=== PATIENT | female | born 1975 | race Caucasian/White ===

== ENCOUNTER 2017-10-17 18:28 | Emergency (ER) | payer BC ==
[~2017-10-17] VITALS: Ht 160 cm; Wt 61.7 kg
[2017-10-17 18:30] VITALS: BP 151/75; PULSE 96; TEMP 37; O2SAT 97; Ht 160 cm; Wt 61.7 kg
[2017-10-17] MEDS ORDERED: CEPHALEXIN MONOHYDRATE 250 MG CAP PO STA (18:42)
[2017-10-17] MEDS ORDERED: LIDOCAINE/EPINEPHRINE 1% 20 ML VIAL INFIL ONE (18:45)
[2017-10-17] MEDS ORDERED: DIPHTHERIA/TETANUS/PERTUSSIS 0.5 ML SYR/VIAL IM. ONE (18:45)
[2017-10-17] MEDS ORDERED: MULT-240 PO (19:00)
--- NOTE | 2017-10-17 19:01 | EMERGENCY ROOM VISIT NOTE ---
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 She has overall unfamiliar with the dog, however states vaccinations are up-to-date. The bleeding has stopped. Denies weakness or numbness of the hand or fingers. The patient rates the pain as throbbing and 5/10. The patient denies any other injuries. The patient's Tetanus shot is not up to date. The patient was seen by urgent care, and sent to the emergency department for evaluation, as the ulceration appears very deep. Urgent care was concerned for possible tendon injury. REVIEW OF SYSTEMS: A 6 system review of systems was completed with positives and pertinent negatives listed in the HPI. ALLERGIES: None MEDICATIONS: Excedrin, multivitamin PMH: None SOCIAL HISTORY: The patient lives locally with family. She denies drug, alcohol , tobacco use. PHYSICAL EXAM: Vital Signs: Reviewed Nurse's notes, vital signs stable. GENERAL : This is a 42-year-old white female, in no acute distress, well-developed, well -nourished. SKIN: There is a 2 inch long laceration on the anterior aspect of the right hand. The edges gape apart with traction. There is no foreign material in the wound and it looks clean. There is minimal bleeding. No obvious deep structures such as tendons, bones, or significant blood vessels are seen in the base of the wound, however possible tendon noted with deep examination after anesthesia. This does appear to be intact. Normal strength and movement of the fingers and wrist. Capillary refill less than 2 seconds. Normal sensation to light and sharp touch. EMERGENCY DEPARTMENT COURSE: I examined the patient. Verbal consent was obtained to perform the procedure. Using sterile technique the wound was cleansed with Betadine. The area was sterilely draped. 6 ml of 1% lidocaine with epinephrine was used to anesthetize the laceration on the hand. Once the patient was anesthetized, the wound was copiously irrigated under pressure with sterile saline. The wound was explored and was as described above. The laceration was repaired using 5 loose, simple interrupted 5-0 nylon sutures with the wound edges being well approximated. The patient tolerated the procedure well. Hemostasis was achieved. The area was cleaned with sterile saline and dressed with bacitracin ointment and bandage. The patient was given Tdap immunization. The patient was discharged home in good condition. I attest that I have personally reviewed the patient's current medication list. Patient was found to have normal blood pressure on screening and does not require follow-up. DIFFERENTIAL DIAGNOSIS: Laceration, tendon injury, infection, bite, rabies, and others DIAGNOSIS: Dog bite to right hand Current/Historical Medications Scheduled Amoxicillin & Pot Clavulanate (Augmentin 875-125 mg), 1 TAB PO BID Multiple Vitamins W/ Minerals (Womens One Daily), 1 TAB PO DAILY Allergies Coded Allergies: No Known Allergies (Unverified , 10/17/17) Vital Signs Date Time Temp Pulse Resp B/P (MAP) Pulse Ox O2 Delivery O2 Flow Rate FiO2 10/17/17 18:30 37.0 96 18 151/75 97 Room Air Medications Administered Medications (Trade) Dose Ordered Sig/E[place]rett Route Start Time Stop Time Status Last Admin Dose Admin Diphtheria/ Pertussis/Tetanus Vacc (Adacel Inj) 0.5 ml ONCE ONCE IM. 10/17/17 18:45 10/17/17 18:46 DC 10/17/17 18:49 0.5 ML Cephalexin Monohydrate (Keflex Cap) 500 mg NOW STAT PO 10/17/17 18:42 10/17/17 18:45 DC 10/17/17 18:48 500 MG Amoxicillin/ Clavulanate Potassium (Augmentin 875MG Home Pack) 1 homepack UD STAT PO 10/17/17 19:36 10/17/17 19:37 DC 10/17/17 19:36 1 HOMEPACK Departure Information Impression Primary Impression: Dog bite Additional Impression: Laceration of right hand Dispostion Home / Self-Care Condition GOOD Prescriptions Amoxicillin & Pot Clavulanate (Augmentin 875-125 mg) 1 Tab Tab 1 TAB PO BID for 7 Days, #14 TAB Prov: Jelena Browning, HENRY 10/17/17 Referrals No Doctor, Assigned (PCP) James Miramontes MD Patient Instructions ED Bite Dog, ED Laceration Hand, My [facility] Additional Instructions You have received 5 sutures on your right hand. These sutures are NOT dissolvable and WILL need to be removed by a health care provider in 10-14 days. You can return to the Emergency Department or contact your Primary Care Provider to have the sutures removed. Proper wound care is essential for adequate wound healing and infection prevention. You can shower and clean the wound with soap and water. Do not scour over the wound, pat dry with a towel. Do not submerse the wound (i.e. bathe or dish wash) until the sutures have been removed. You can use an antibiotic ointment with a dressing over the wound for the next 3-4 days. After this time you may leave the wound dry and open to the air. If crust develops over the wound you can use a Q-tip to apply a 1:1 peroxide:water solution to clean the wound. You were prescribed Augmentin to be taken twice daily for 7 days. This is an antibiotic to help prevent infection. All antibiotics have the potential to cause diarrhea. Stop this medication and contact a medical provider if you were to develop any significant adverse side effects including: wheezing, shortness of breath, passing out, vomiting, or a diffuse rash. Always take antibiotics as directed and COMPLETE the ENTIRE course regardless of the improvement of your symptoms. Please take your first dose of Augmentin tonight before bed. Look for signs of infection of the wound including: increased pain, swelling, foul discharge, streaking, or increased temperature. If any of these are noticed you should return to the Emergency Department for further assessment and treatment. As with any laceration you may have received nerve damage to the surrounding tissues. This damage may or may not be permanent. You should keep the area covered with sunscreen for the first 6 months to 1 year when at risk for exposure to help minimize scarring. You can also use scar reducing creams or Vitamin E oil to help minimize scarring. For pain control, you can use the following [id number] medicines (if >12 yo): Ibuprofen(Motrin, Advil) may be used for fever or pain. Use 600mg every six hours as needed. Take with food. Avoid using more than 2400mg in a 24 hour period. Do not use 2400mg per day for more than three consecutive days without physician direction. Prolonged inappropriate use can lead to stomach upset or ulcers. (AND/OR) Acetaminophen(Tylenol) may be used for fever or pain. Use 1000mg every six hours as needed. Avoid using more than 3000mg in a 24 hour period. Return to the emergency department if your symptoms worsen despite treatment course outlined above. Problem Qualifiers Primary Impression: Dog bite Encounter type: initial encounter Qualified Codes: W54.0XXA - Bitten by dog , initial encounter Additional Impression: Laceration of right hand Encounter type: initial encounter Foreign body presence: without foreign body Qualified Codes: S61.411A - Laceration without foreign body of right hand , initial encounter
[2017-10-17] MEDS ORDERED: AMOXICIL/CLAVU 875MG HOME PACK PO STA (19:36)
[2017-10-17] MEDS ORDERED: AMOX875T PO (19:38)
--- NOTE | 2017-10-17 21:58 | EMERGENCY ROOM VISIT NOTE ---
ED Visit Note First contact with patient: 18:35 The patient was seen and examined with PA. I agree with the history, physical and findings. Please see the note for disposition and details.
== END 2017-10-17 19:45 | disposition home or self-care (01) ==
LOC: C.EDB 18:29 → C.EDD 19:45
DX: S61.451A Open bite of right hand, initial encounter (principal); S61.411A Laceration without foreign body of right hand, initial encounter; W54.0XXA Bitten by dog, initial encounter; Y93.89 Activity, other specified; Y99.0 Civilian activity done for income or pay; Y92.89 Other specified places as the place of occurrence of the external cause; Z23 Encounter for immunization